=== PATIENT | male | born 1990 | race African-American/Black ===

== ENCOUNTER 2017-01-04 19:47 | Inpatient (IN) | payer OTHER ==
[~2017-01-04] VITALS: Ht 162.6 cm; Wt 88.2 kg
[2017-01-04 21:40] LABS: BASOPHIL 0.3 % (0-2); EOSINOPHIL 0.2 % (0-5); HGB 14.1 g/dl (13.2-18.0); LYMPHOCYTE 7.4 % (15-48); MCH 32.5 pg (25.0-31.0); MCHC 35.3 g/dL (32.0-36.0); MCV 92.2 fL (78.0-100.0); MONOCYTE 10.5 % (0-12); NEUTROPHIL 81.6 % (41-80); PLT 251 K/uL (150-400); RBC 4.34 M/uL (4.70-6.00); RDW 13.3 % (11.5-14.0)
[2017-01-04 21:41] LABS: WBC 13.9 K/uL (4.0-10.5)
[2017-01-04 22:22] LABS: ALBUMIN 4.4 g/dL (3.5-5.0); BILIRUBIN - TOTAL 0.7 mg/dL (0.1-1.0); CREATININE 3.4 mg/dL (0.7-1.2); GLOBULIN (CALCULATION) 4.8 g/dL (2.2-4.2); TOTAL PROTEIN 9.2 g/dL (6.4-8.3)
[2017-01-04 22:43] LABS: BILIRUBIN 2+ mg/dL (NEGATIVE); BLOOD NEGATIVE Ery/uL (NEGATIVE); CLARITY CLOUDY (CLEAR); COLOR YELLOW (YELLOW); GLUCOSE (U) NORMAL (NORMAL); KETONE (U) TRACE mg/dL (NEGATIVE); LEUKOCYTES TRACE Leu/uL (NEGATIVE); NITRITE NEGATIVE (NEGATIVE); PROTEIN 3+ mg/dL (NEGATIVE); SPECIFIC GRAVITY >=1.030 (1.001-1.030)
[2017-01-04 22:45] LABS: BACTERIA 1+
[2017-01-04 22:53] LABS: LACTIC ACID 1.4 mmol/L (0.5-2.2)
[2017-01-05 05:32] LABS: BASOPHIL 0.3 % (0-2); EOSINOPHIL 0.4 % (0-5); HGB 12.3 g/dl (13.2-18.0); LYMPHOCYTE 16.1 % (15-48); MCH 32.5 pg (25.0-31.0); MCHC 35.1 g/dL (32.0-36.0); MCV 92.6 fL (78.0-100.0); MONOCYTE 14.3 % (0-12); MPV 10.2 fL (6.0-9.5); NEUTROPHIL 68.9 % (41-80); PLT 226 K/uL (150-400); RBC 3.78 M/uL (4.70-6.00); RDW 13.5 % (11.5-14.0); WBC 11.2 K/uL (4.0-10.5)
[2017-01-05 05:56] LABS: CREATININE 2.3 mg/dL (0.7-1.2); MAGNESIUM 2.23 mg/dL (1.40-2.10); POTASSIUM 3.2 mmol/L (3.5-5.1)
[2017-01-06 05:11] LABS: BASOPHIL 0.4 % (0-2); HCT 33.2 % (42.0-52.0); HGB 11.7 g/dl (13.2-18.0); MCH 32.8 pg (25.0-31.0); MCHC 35.2 g/dL (32.0-36.0); MONOCYTE 20.4 % (0-12); NEUTROPHIL 58.2 % (41-80); PLT 267 K/uL (150-400); RBC 3.57 M/uL (4.70-6.00); RDW 13.4 % (11.5-14.0)
[2017-01-06 05:14] LABS: WBC 7.8 K/uL (4.0-10.5)
[2017-01-06 05:25] LABS: ALBUMIN 3.3 g/dL (3.5-5.0); BILIRUBIN - TOTAL 0.3 mg/dL (0.1-1.0); CREATININE 1.1 mg/dL (0.7-1.2); GLOBULIN (CALCULATION) 3.6 g/dL (2.2-4.2); MAGNESIUM 1.82 mg/dL (1.40-2.10); PHOSPHORUS 3.3 mg/dL (2.7-4.5); POTASSIUM 3.5 mmol/L (3.5-5.1); TOTAL PROTEIN 6.9 g/dL (6.4-8.3)
[2017-01-06] MEDS ORDERED: METRONIDAZOLE500 MG PO (13:33)
[2017-01-06] MEDS ORDERED: ZITHROMAX500 MG PO (13:34)
[2017-01-06] MEDS ORDERED: CEFDINIR300 MG PO (13:34)
[2017-01-06] MEDS ORDERED: LOPRESSOR25 MG PO (13:35)
[2017-01-06] MEDS ORDERED: ALLOPURINOL100 MG PO (13:36)
[2017-01-06] MEDS ORDERED: TRAZODONE 50MG50 MG PO (13:36)
[2017-01-06] MEDS ORDERED: LOSARTAN-HCTZ1 EACH PO (13:36)
[2017-01-06] MEDS ORDERED: OMEPRAZOLE40 MG PO (13:36)
== END 2017-01-06 13:42 | disposition home or self-care (01) | DRG 871 ==
LOC: FER 19:47 → FMS 01-05 00:51
PROVIDERS: Allergy & Immunology; Internal Medicine Nephrology; Nurse Practitioner; ADMIT Internal Medicine
DX: A41.9 Sepsis, unspecified organism (principal); J18.0 Bronchopneumonia, unspecified organism; N17.9 Acute kidney failure, unspecified; A04.7 Enterocolitis due to Clostridium difficile; E87.1 Hypo-osmolality and hyponatremia; R65.20 Severe sepsis without septic shock; I10 Essential (primary) hypertension; F17.210 Nicotine dependence, cigarettes, uncomplicated; E86.0 Dehydration
CPT/HCPCS: 36415; 71020; 76770; 80048; 80053; 80074; 81001; 82150; 83605; 83690; 83735; 84100; 85025; 87040; 87088; 87389; 87493; 94010; J0456

== ENCOUNTER 2020-11-25 14:23 | Emergency (ER) | payer OTHER ==
[~2020-11-25 14:23] MED LIST: ALLOPURINOL100 MG PO; CEFDINIR300 MG PO; LOPRESSOR25 MG PO; LOSARTAN-HCTZ1 EACH PO; METRONIDAZOLE500 MG PO; OMEPRAZOLE40 MG PO; PROTONIX 40MG T40 MG PO; TAMIFLU 75MG CA75 MG PO; TRAZODONE 50MG50 MG PO; ZITHROMAX500 MG PO
[2020-11-25 16:21] LABS: BASOPHIL 0.4 % (0-2); EOSINOPHIL 0.1 % (0-5); HCT 48.3 % (42.0-52.0); HGB 16.8 g/dl (13.2-18.0); LYMPHOCYTE 19.1 % (15-48); MCH 30.7 pg (25.0-31.0); MCHC 34.8 g/dL (32.0-36.0); MCV 88.3 fL (78.0-100.0); MONOCYTE 6.4 % (0-12); MPV 10.1 fL (6.0-9.5); NEUTROPHIL 73.5 % (41-80); NRBC 0; PLT 255 K/uL (150-400); RBC 5.47 M/uL (4.70-6.00); RDW 13.3 % (11.5-14.0); WBC 10.1 K/uL (4.0-10.5)
[2020-11-25 16:38] LABS: ALBUMIN 3.9 g/dL (3.4-5.0); BILIRUBIN - TOTAL 0.3 mg/dL (0.2-1.0); CREATININE 0.75 mg/dL (0.67-1.17); POTASSIUM 4.1 mmol/L (3.5-5.1); TOTAL PROTEIN 7.9 g/dL (6.4-8.2)
[2020-11-25 17:40] LABS: CORONAVIRUS 2019 SARS-COV-2 NEGATIVE (NEGATIVE); INFLUENZA A NAA NEGATIVE (NEGATIVE)
== END 2020-11-25 18:39 | disposition home or self-care (01) ==
LOC: FER 14:23
PROVIDERS: Nurse Practitioner Family
DX: B34.9 Viral infection, unspecified (principal); Z20.822 Contact with and (suspected) exposure to COVID-19; I10 Essential (primary) hypertension; F17.210 Nicotine dependence, cigarettes, uncomplicated
CPT/HCPCS: 36415; 71046; 80053; 85025; J7030; U0002

== ENCOUNTER 2021-06-24 16:41 | Emergency (ER) | payer OTHER ==
[2021-06-24 19:41] LABS: BASOPHIL 0.5 % (0-2); EOSINOPHIL 0.6 % (0-5); HCT 46.8 % (42.0-52.0); HGB 15.7 g/dl (13.2-18.0); LYMPHOCYTE 26.1 % (15-48); MCH 30.6 pg (25.0-31.0); MCHC 33.5 g/dL (32.0-36.0); MCV 91.2 fL (78.0-100.0); MONOCYTE 9.6 % (0-12); MPV 10.5 fL (6.0-9.5); NRBC 0; PLT 194 K/uL (150-400); RBC 5.13 M/uL (4.70-6.00); RDW 13.7 % (11.5-14.0); WBC 8.2 K/uL (4.0-10.5)
[2021-06-24 20:03] LABS: ALBUMIN 3.9 g/dL (3.4-5.0); BILIRUBIN - TOTAL 0.8 mg/dL (0.2-1.0); BUN/CREAT RATIO (CALC) 11.1 RATIO; CREATININE 0.9 mg/dL (0.67-1.17); GLOBULIN (CALCULATION) 3.9 g/dL; TOTAL PROTEIN 7.8 g/dL (6.4-8.2)
[2021-06-24] MEDS ORDERED: PREPARATION H R28 GM TOP (21:10)
[2021-06-24] MEDS ORDERED: SENNA-S 8.6-501 EACH PO (21:10)
== END 2021-06-24 21:48 | disposition home or self-care (01) ==
LOC: FER 16:41
PROVIDERS: Internal Medicine
DX: K64.4 Residual hemorrhoidal skin tags (principal); I10 Essential (primary) hypertension
CPT/HCPCS: 36415; 80053; 84145; 85025; Q9967

== ENCOUNTER 2021-11-04 00:17 | Emergency (ER) | payer OTHER ==
[~2021-11-04 00:17] MED LIST changes: +PREPARATION H R28 GM TOP; +SENNA-S 8.6-501 EACH PO
[2021-11-04 00:56] LABS: BASOPHIL 0.7 % (0-2); EOSINOPHIL 0.4 % (0-5); HCT 47.1 % (42.0-52.0); HGB 15.9 g/dl (13.2-18.0); LYMPHOCYTE 41.3 % (15-48); MCH 30.9 pg (25.0-31.0); MCHC 33.8 g/dL (32.0-36.0); MCV 91.5 fL (78.0-100.0); MPV 10.3 fL (6.0-9.5); NEUTROPHIL 46.7 % (41-80); NRBC 0; PLT 236 K/uL (150-400); RBC 5.15 M/uL (4.70-6.00); RDW 13.7 % (11.5-14.0); WBC 9.1 K/uL (4.0-10.5)
[2021-11-04 01:27] LABS: ALBUMIN 3.7 g/dL (3.4-5.0); BILIRUBIN - TOTAL 0.3 mg/dL (0.2-1.0); BUN/CREAT RATIO (CALC) 9.8 RATIO; CREATININE 0.92 mg/dL (0.67-1.17); POTASSIUM 3.4 mmol/L (3.5-5.1); TOTAL PROTEIN 7.7 g/dL (6.4-8.2)
[2021-11-04 02:33] LABS: BILIRUBIN NEGATIVE (NEGATIVE); BLOOD NEGATIVE Ery/uL (NEGATIVE); CLARITY CLEAR (CLEAR); COLOR YELLOW (YELLOW); GLUCOSE (U) NORMAL (NORMAL); LEUKOCYTES NEGATIVE Leu/uL (NEGATIVE); NITRITE NEGATIVE (NEGATIVE); PROTEIN NEGATIVE (NEGATIVE); SPECIFIC GRAVITY <=1.005 (1.001-1.030); UROBILINOGEN 0.2 mg/dL (0.2-1.0)
[2021-11-04 02:37] LABS: AMPHETAMINES NEGATIVE (NEGATIVE); BARBITURATES NEGATIVE (NEGATIVE); ECSTASY (MDMA) NEGATIVE (NEGATIVE); MARIJUANA (THC) NEGATIVE (NEGATIVE); METHADONE NEGATIVE (NEGATIVE); OPIATES NEGATIVE (NEGATIVE); OXYCODONE NEGATIVE (NEGATIVE)
== END 2021-11-04 07:00 | disposition home or self-care (01) ==
LOC: FER 00:17
PROVIDERS: Internal Medicine
DX: F10.129 Alcohol abuse with intoxication, unspecified (principal); F14.10 Cocaine abuse, uncomplicated; I10 Essential (primary) hypertension; F17.210 Nicotine dependence, cigarettes, uncomplicated; Y90.8 Blood alcohol level of 240 mg/100 ml or more; Z79.899 Other long term (current) drug therapy
CPT/HCPCS: 36415; 80053; 80305; 81003; 83605; 85025; 99284; G0480; J7030